=== PATIENT | male | born 2005 | race Caucasian/White ===

== ENCOUNTER 2023-07-01 07:29 | Emergency (ER) | payer BC, OTHER, SELFPAY ==
[2023-07-01 07:31] VITALS: BP 112/70; PULSE 62; RESP 18; TEMP 36.2; O2SAT 100; BMI 26.6
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
[2023-07-01] MEDS: 0.9% Normal Saline (1000mL) 1,000 ML 1000 ML IV (08:11)
[2023-07-01] MEDS: Ondansetron 4 MG/2 ML Vial IV (08:12)
[2023-07-01 08:23] LABS: Absolute Lymphocyte Count 2.54 X10^3/uL (0.83-4.51); Absolute Neutrophil Count 4.1 X10^3/uL (2.0-7.7); Basophil% 1.3 % (0-1); Eosinophil# 0.36 X10^3/uL; Eosinophils% 4.5 % (0-5); Hematocrit 47.5 % (40-54); Hemoglobin 15.4 g/dL (13.0-16.5); Lymphocyte # 2.54 X10^3/ul (0.83-4.51); Lymphocyte % 31.9 % (19-41); Mean Corp Hgb Conc 32.4 g/dL (32-36); Mean Corpuscular Hgb 28.8 pg (27.0-32.0); Mean Platelet Vol. 10.1 fl (6.2-12.0); Monocyte# 0.79 X10^3/uL; Monocyte% 9.9 % (0-10); NRBC Flagged by Analyzer 0 % (0-5); Neutrophil # 4.14 X10^3/uL (2.7-7.7); Platelet Count 254 K/mm3 (150-450); RBC Distribution Width CV 12.5 % (11.6-14.6); RBC Distribution Width SD 40.8 fl (35.1-43.9); Red Blood Count 5.34 M/mm3 (4.6-6.2)
[2023-07-01 08:38] LABS: Anion Gap 1 (5-15); BUN 11 mg/dL (7-18); Calcium,Total 9.3 mg/dL (8.5-10.1); Chloride 107 mmol/L (98-107); Creatinine, Serum 0.84 mg/dL (0.70-1.30); EST Glomerular Filtration Rate 123 mL/min (>60); Est Glom Filt Rate - Afr Amer 149 mL/min (>60); Estimated Creatinine Clearance 159.85 ml/min; Glucose 95 mg/dL (74-106); Potassium 4.8 mmol/L (3.5-5.1); Sodium Level 138 mmol/L (136-145)
[2023-07-01 09:53] VITALS: BP 100/69; RESP 16
== END 2023-07-01 09:54 | disposition home or self-care (01) ==
PROVIDERS: Emergency Provider Emergency Medicine; PCP Pediatrics; Visit Provider Emergency Medicine
DX: R11.2 Nausea with vomiting, unspecified (principal); S10.93XA Contusion of unspecified part of neck, initial encounter; F17.290 Nicotine dependence, other tobacco product, uncomplicated; Y04.8XXA Assault by other bodily force, initial encounter
CPT/HCPCS: 70498; 80048; 85025; 96361; 96374; 99282; J7030; Q9967; A4216; J2405

== ENCOUNTER 2023-07-13 05:59 | Emergency (ER) | payer BC, OTHER, SELFPAY ==
[2023-07-13 06:00] VITALS: BP 98/60; PULSE 69; RESP 16; TEMP 36.6; O2SAT 99; BMI 27.0
--- NOTE | 2023-07-13 06:19 | EX.ED.DYSGE1 ---
HPI History of Present Illness Chief Complaint: Nausea/Vomiting Informant: patient and friend Narrative Narrative: Patient is a 17-year-old male with no significant past medical history. He states that over the last 24 hours he has had bouts of nausea and vomiting. He states that he has had Zofran at home which he has been taking without any symptom improvement. He reports he is also had loose stool for the past 5 to 7 days. He denies any known sick contact. He denies any recent travel surgery or travel outside the country. He states that he cannot keep any food or fluid down and with concern for dehydration comes in for evaluation. Patient does admit to occasional marijuana use but states he is not a frequent user and he denies any recent use [facility] Medical History Focal nodular hyperplasia of liver Home Medications prochlorperazine maleate 10 mg tablet (Compazine) 10 mg PO 4X/DAY PRN PRN nausea and vomiting 7 days #28 tabs 07/13/23 [Rx Last Taken Unknown] Allergy/AdvReac Type Severity Reaction Status Date / Time No Known Allergies Allergy Verified 07/13/23 06:00 Social History Smoking Status: Current every day smoker tobacco type: e-cigarettes ROS ROS ED Constitutional Constitutional ED: Denies chills or fever(s) ENT ENT ED: Reports sore throat Cardiovascular Cardiovascular: Denies chest pain Respiratory/Chest Respiratory/Chest: Denies cough or dyspnea Gastrointestinal Gastrointestinal: Reports abdominal pain, diarrhea, nausea and vomiting Genitourinary Genitourinary ED: Denies dysuria Musculoskeletal Musculoskeletal: Denies myalgias Integumentary Denies rash Neurologic Neurologic: Denies headache(s) Hematologic/Lymphatic Hematologic/Lymphatic: Denies easy bleeding or easy bruising EXAM Physical Exam Const Vital Signs: 07/13/23 06:00 Temperature 97.8 F Temperature Source Temporal Pulse Rate 69 Respiratory Rate 16 Blood Pressure 98/60 Blood Pressure Mean 72 Pulse Ox 99 Positive well nourished and well developed General Appearance ED: well developed; Negative for pallor HEENT Reports moist mucous membranes HEENT Narrative: No tongue or lip swelling No oral lesions or airway edema or compromise No secondary changes noted in the posterior pharynx to suggest infection Eyes PERRL and EOMs intact bilaterally General Eye ED: Negative for scleral icterus Neck supple Resp normal respiratory effort and clear to auscultation bilaterally Cardio regular rate and regular rhythm Rate: other Other Details: Heart is regular rate and rhythm without murmurs rubs or gallop Radial and carotid pulses equal and symmetric GI non-distended GI Narrative: Abdomen is soft and nondistended with hyperactive bowel sounds. Patient has mild diffuse pain on palpation without voluntary guarding or rigidity. No pulsatile mass or fluid wave Auscultation: hyperactive bowel sounds Palpation: soft Extremity normal to inspection Neuro oriented x3, CN's II-XII intact bilaterally and no sensory deficits noted Sensorium / Orientation: alert Motor Exam: strength 5/5 throughout Psych mental status grossly normal Skin no rashes or lesions noted and skin turgor normal General Skin Exam: Negative for jaundice or pallor MDM MDM MDM Narrative Medical decision making narrative: Patient presented to the ER with stable vitals and a soft nonsurgical abdomen. His report of loose stool as well as nausea and vomiting is most consistent with viral gastroenteritis. However as there is potential for biliary colic versus acute cholecystitis versus biliary duct stone versus pancreatitis I did elect to check basic laboratory studies. Patient's labs revealed no clinically significant findings. He was rehydrated with 1 L of fluid and given IV Compazine and had no further bouts of vomiting. On reevaluation his abdomen remains soft and nonsurgical and therefore with negative workup and improvement of symptoms he can be discharged home with symptomatic care. History & Record Review Discussion w/independent historian: Patient and Friend Lab Data Labs: Laboratory Results - last 24 hr 07/13/23 06:25 WBC 8.1 RBC 5.25 Hgb 15.0 Hct 45.7 MCV 87.0 MCH 28.6 MCHC 32.8 RDW Std Deviation 39.1 RDW Coeff of Sia 12.3 Plt Count 250 MPV 10.1 Immature Gran % (Auto) 0.200 Neut % (Auto) 43.1 L Lymph % (Auto) 39.0 [place] % (Auto) 10.9 H Eos % (Auto) 5.4 H Baso % (Auto) 1.4 H Absolute Neuts (auto) 3.5 Absolute Lymphs (auto) 3.15 Nucleated RBC % 0 Sodium 141 Potassium 3.7 Chloride 108 H Carbon Dioxide 31.0 Anion Gap 2 L BUN 11 Creatinine 0.92 Estim Creat Clear Calc 145.95 Est GFR (MDRD) Af Amer 135 Est GFR (MDRD) Non-Af 112 BUN/Creatinine Ratio 12.0 Glucose 99 Calcium 9.0 Total Bilirubin 0.40 Direct Bilirubin 0.11 AST 15 ALT 28 Alkaline Phosphatase 64 Total Protein 7.3 Albumin 3.7 Globulin 3.6 Lipase 27 Discharge Plan Triage Chief Complaint: Nausea/Vomiting ED Provider: Nathanael Jarrell Dx/Rx/DC Orders Clinical Impression: Mild dehydration, Nausea & vomiting Instructions: ED Dehydration (Adult), ED Vomiting (Adult) Prescriptions: New prochlorperazine maleate [Compazine] 10 mg tablet 10 mg PO 4X/DAY PRN PRN (Reason: nausea and vomiting) 7 Days Qty: 28 0RF Stand Alone Forms: ED Work / School Excuse Primary Care Provider: Saida More Referrals: Saida More MD [Primary Care Provider] - Activity Restrictions/Additional Instructions: Please keep yourself well-hydrated and take the prescribed medication as directed to help control any further symptoms. Talk to your family doctor about potential GI referral and EGD to further assess the cause of your recurrent episodes of vomiting and return to the ER should you have any further concerns Disposition Disposition: Home, Self Care
[2023-07-13] MEDS: proCHLORPERazine 10 MG/2 ML Vial IV (06:23)
[2023-07-13] MEDS: 0.9% Normal Saline (1000mL) 1,000 ML 999 ML IV (06:24)
[2023-07-13 06:38] LABS: Absolute Lymphocyte Count 3.15 X10^3/uL (0.83-4.51); Absolute Neutrophil Count 3.5 X10^3/uL (2.0-7.7); Basophil# 0.11 X10^3/uL; Basophil% 1.4 % (0-1); Eosinophil# 0.44 X10^3/uL; Eosinophils% 5.4 % (0-5); Hematocrit 45.7 % (40-54); Lymphocyte # 3.15 X10^3/ul (0.83-4.51); Mean Corp Hgb Conc 32.8 g/dL (32-36); Mean Corpuscular Hgb 28.6 pg (27.0-32.0); Mean Platelet Vol. 10.1 fl (6.2-12.0); Monocyte# 0.88 X10^3/uL; Monocyte% 10.9 % (0-10); NRBC Flagged by Analyzer 0 % (0-5); Neutrophil # 3.48 X10^3/uL (2.7-7.7); Neutrophil % 43.1 % (47-70); Platelet Count 250 K/mm3 (150-450); RBC Distribution Width CV 12.3 % (11.6-14.6); RBC Distribution Width SD 39.1 fl (35.1-43.9); Red Blood Count 5.25 M/mm3 (4.6-6.2); White Blood Count 8.1 K/mm3 (4.4-11.0)
[2023-07-13 06:54] LABS: AST(SGOT) 15 U/L (15-37); Alanine Aminotransfer ALT/SGPT 28 U/L (16-61); Albumin, Serum 3.7 g/dL (3.2-5.0); Alkaline Phosphatase 64 U/L (45-117); Anion Gap 2 (5-15); BUN 11 mg/dL (7-18); Bilirubin, Direct 0.11 mg/dL (0.00-0.30); Chloride 108 mmol/L (98-107); Creatinine, Serum 0.92 mg/dL (0.70-1.30); EST Glomerular Filtration Rate 112 mL/min (>60); Est Glom Filt Rate - Afr Amer 135 mL/min (>60); Estimated Creatinine Clearance 145.95 ml/min; Globulin 3.6 g/dL (2.2-4.2); Glucose 99 mg/dL (74-106); Lipase 27 U/L (13-75); Potassium 3.7 mmol/L (3.5-5.1); Protein, Total 7.3 g/dL (6.4-8.2); Sodium Level 141 mmol/L (136-145)
[2023-07-13 07:22] VITALS: BP 140/68; PULSE 76; RESP 16; O2SAT 99
== END 2023-07-13 07:25 | disposition home or self-care (01) ==
PROVIDERS: Emergency Provider Emergency Medicine; PCP Pediatrics; Visit Provider Emergency Medicine
DX: E86.0 Dehydration (principal); R19.7 Diarrhea, unspecified; F17.290 Nicotine dependence, other tobacco product, uncomplicated; R11.2 Nausea with vomiting, unspecified; J02.9 Acute pharyngitis, unspecified
CPT/HCPCS: 80048; 80076; 83690; 85025; 96361; 96374; 99283; J7030